=== PATIENT | male | born 1990 | race Caucasian/White ===

== ENCOUNTER 2017-05-19 14:43 | Emergency (ER) | payer MEDICAID ==
[2017-05-19 15:00] VITALS: BP 119/71
--- NOTE | 2017-05-19 15:47 | CR ---
Clinical history: 27-year-old male injured right hand. Interpretation: 3 views right hand and wrist confirm soft tissue swelling ulnar aspect and acute unde rlying fracture distal and (head) of the fifth metacarpal. Fracture line extends into the joint and m ild offset with angulation deformity at fracture site. No sign of other fracture or dislocation right hand or wrist. No foreign bodies.
--- NOTE | 2017-05-19 16:20 | EDM.PDOC ---
Scribed by Arlen Ulloa 05/19/17 1620 for Nathan Gonzales MD ED HPI GENERAL MEDICAL PROBLEM - General Chief Complaint: Upper Extremity Injury/Pain Stated Complaint: [id number] FRACTURED HAND Time Seen by Provider: 05/19/17 15:10 Source of Information: Reports: Patient, RN, RN Notes Reviewed History Limitations: Reports: No Limitations - History of Present Illness INITIAL COMMENTS - FREE TEXT/NARRATIVE: Patient presented with complaint of pain to right hand sustained yesterday when patient punched a table. Denies any other injury. Quality: Reports: Ache Severity: Severe Improves with: Reports: None Worsens with: Reports: None Associated Symptoms: Reports: No Other Symptoms Right Hand Pain Score (Numeric/FACES): 6 - Related Data Allergies Allergy/AdvReac Type Severity Reaction Status Date / Time No Known Allergies Allergy Verified 05/19/17 14:56 Home Meds: Home Meds . [No Known Home Meds] 01/16/16 [History] Past Medical History - Past Health History Medical/Surgical History: Denies Medical/Surgical History - Infectious Disease History Infectious Disease History: Reports: TB Other Infectious Disease History: was told that he was possibly exposed to TB, was treated in 2014. Positive skin test in [place]. Pt was at the [facility] in 2014 - Past Surgical History Musculoskeletal Surgical History: Reports: Other (See Below) Social & Family History - Family History Family Medical History: Noncontributory - Tobacco Use Smoking Status *Q: Current Every Day Smoker Years of Tobacco use: 5 Packs/Tins Daily: 1 Second Hand Smoke Exposure: Yes - Caffeine Use Caffeine Use: Reports: Coffee - Recreational Drug Use Recreational Drug Use: No - Living Situation & Occupation Occupation: Employed Review of Systems - Review of Systems Review Of Systems: ROS reveals no pertinent complaints other than HPI. ED EXAM, GENERAL - Physical Exam Exam: See Below Exam Limited By: No Limitations General Appearance: Alert, WD/WN, No Apparent Distress Extremities: Other (right hand swollen with pain focal overlying the distal 5th metacarpal. Skin is intact.) Neurological: Alert, Oriented, CN II-XII Intact, Normal Cognition, Normal Gait, Normal Reflexes, No Motor/Sensory Deficits Psychiatric: Normal Affect, Normal Mood ED TRAUMA EXTREMITY PROCEDURES - Splinting Right Upper Extremity Splint Site: right short arm splint Pre-Procedure NV Status: Normal Post-Procedure NV Status: Normal Splint Material: Fiberglass Splint Design: Volar Applied & Form Fitted By: Provider Provider Post-Splint Application NV Check: NV Status Normal Complications: No Course - Vital Signs Last Recorded V/S: Last Vital Signs Temp 36.6 C 05/19/17 14:58 Pulse 90 05/19/17 14:58 Resp 18 05/19/17 14:58 BP 119/71 05/19/17 14:58 Pulse Ox 100 05/19/17 14:58 - Radiology Interpretation Free Text/Narrative:: Right hand x-ray: Soft tissue swelling ulnar aspect and acute underlying fracture distal and (head) of the fifth metacarpal. See rad report. Departure - Departure Time of Disposition: 16:09 Disposition: Home, Self-Care 01 Condition: Good Clinical Impression: Closed fracture of fifth metacarpal bone of right hand Qualifiers: Encounter type: initial encounter Metacarpal location: neck Fracture alignment : nondisplaced Qualified Code(s): S62.366A - Nondisplaced fracture of neck of fifth metacarpal bone, right hand, initial encounter for closed fracture - Discharge Information Instructions: [facility] Forms: ED Department Discharge Additional Instructions: RX: Hydrocodone [id number]/325mg. *Do not drive while under the influence of this medication. Do not remove the splint. Call [facility] orthopedic clinic tomorrow to schedule follow up appointment and inform the box printing machine operator that x-ray is available on PACs. I have read and agree with the documentation that has been completed regarding this visit. By signing this record, I attest that the documentation was completed in my physical presence and is an accurate record of the encounter.
== END 2017-05-19 16:22 | disposition home or self-care (01) ==
LOC: DL.ED 14:43
DX: S62.366A Nondisplaced fracture of neck of fifth metacarpal bone, right hand, initial encounter for closed fracture (principal); F17.210 Nicotine dependence, cigarettes, uncomplicated; W22.03XA Walked into furniture, initial encounter
CPT/HCPCS: 29125; 73130-RT; 99283